=== PATIENT | male | born 1995 | race American Indian/Alaskan Native ===

== ENCOUNTER 2019-11-22 08:35 | Emergency (ER) | payer OTHER, BC ==
[2019-11-22] MEDS ORDERED: HYDROcodone/ACETAMINOPHEN 5-325 MG TAB PO ONE (11:53)
[2019-11-22] MEDS ORDERED: CYCLOBENZAPRINE 10 MG TAB PO ONE (11:53)
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
[2019-11-22 12:24] VITALS: BP 147/82
== END 2019-11-22 12:23 | disposition home or self-care (01) ==
LOC: ED 08:35
DX: M54.9 Dorsalgia, unspecified (principal); G43.909 Migraine, unspecified, not intractable, without status migrainosus; Z21 Asymptomatic human immunodeficiency virus [HIV] infection status; Z79.899 Other long term (current) drug therapy